=== PATIENT | female | born 1995 | race Caucasian/White ===

== ENCOUNTER 2018-03-03 16:53 | Emergency (ER) | payer BC, OTHER ==
[~2018-03-03] VITALS: Ht 167.6 cm; Wt 59.0 kg
[~2018-03-03 16:53] MED LIST: ANTIDEPRESSANT PO; FAMO40 PO; METPHE10 PO; ONDA4ODT MM; PRED20 PO; [UNRECOGNIZED DRUG - OTHER]
[2018-03-03] MEDS ORDERED: Bactrim Ds Tab1 EACH PO (17:47)
[2018-03-03] MEDS ORDERED: CEPH500 PO (17:47)
== END 2018-03-03 17:52 | disposition home or self-care (01) ==
LOC: ER 16:53
DX: H60.01 Abscess of right external ear (principal); L02.01 Cutaneous abscess of face; L03.211 Cellulitis of face; H60.11 Cellulitis of right external ear; F90.9 Attention-deficit hyperactivity disorder, unspecified type; F17.210 Nicotine dependence, cigarettes, uncomplicated
CPT/HCPCS: 87070; 87077; 87147; 87186; 87205; 99283

== ENCOUNTER 2019-05-28 23:39 | Emergency (ER) | payer SELFPAY ==
[~2019-05-28] VITALS: Ht 167.6 cm; Wt 59.0 kg
[~2019-05-28 23:39] MED LIST changes: +Bactrim Ds Tab1 EACH PO; +CEPH500 PO
[2019-05-29 01:13] LABS: BASOPHILS ABSOLUTE AUTO 0.04 K/mm3 (0.00-0.23); BASOPHILS PERCENT AUTO 0 % (0-2); EOSINOPHILS ABSOLUTE AUTO 0.13 K/mm3 (0.00-0.68); EOSINOPHILS PERCENT AUTO 1 % (0-6); Hematocrit 32.7 % (33.0-51.0); Hemoglobin 10.8 g/dL (11.5-16.0); IMMATURE GRAN ABSOLUTE AUTO 0.07 K/mm3 (0.00-0.10); IMMATURE GRAN PERCENT AUTO 1 % (0-1); LYMPHOCYTES ABSOLUTE AUTO 3.31 K/mm3 (0.84-5.20); LYMPHOCYTES PERCENT AUTO 26 % (21-46); MONOCYTES ABSOLUTE AUTO 1.07 K/mm3 (0.16-1.47); MONOCYTES PERCENT AUTO 9 % (4-13); Mean Corpuscular HGB 28.2 pg (26.0-34.0); Mean Corpuscular Volume 85 fL (80-100); NEUTROPHILS ABSOLUTE AUTO 8.01 K/mm3 (1.96-9.15); NEUTROPHILS PERCENT AUTO 63 % (41-73); Platelet Count 236 K/mm3 (150-400); RDW Coefficient Variation 13.5 % (11.7-14.2); RDW Standard Deviation 42.2 fL (35.1-46.3); Red Blood Cell Count 3.83 M/mm3 (3.80-5.20); White Blood Cell Count 12.63 K/mm3 (4.00-11.30)
[2019-05-29 01:28] LABS: Alanine Aminotransfer (ALT/SGP 77 U/L (12-78); Albumin, Blood 3.2 g/dL (3.4-5.0); Albumin/Globulin Ratio 0.7 (0.8-1.8); Alk Phos 205 U/L (50-136); Anion Gap 6 mmol/L (6-16); Aspartate Aminotrans (AST/SGOT 20 U/L (12-37); Bilirubin, Total 0.6 mg/dL (0.1-1.0); Blood Urea Nitrogen 13 mg/dL (8-24); Bun/Creatinine Ratio 24.9 (12.0-20.0); CO2, Blood 27 mmol/L (21-32); Calcium, Blood 8.5 mg/dL (8.5-10.1); Chloride, Blood 103 mmol/L (98-108); Creatinine, Blood 0.52 mg/dL (0.40-1.00); Globulin, Blood 4.5 g/dL (2.2-4.0); Glomerular Filtration Rate >60 (60-); Glucose, Blood 89 mg/dL (70-99); Potassium, Blood 3.2 mmol/L (3.5-5.5); Sodium, Blood 136 mmol/L (136-145); Total Protein, Blood 7.7 g/dL (6.4-8.2); Troponin I <0.015 ng/mL (0.000-0.040)
[2019-05-29] MEDS ORDERED: Augmentin 500-1 EACH PO (01:49)
[2019-05-29 02:07] LABS: Source, Urine Clean Catch
[2019-05-29 02:10] LABS: Appearance, Urine Clear (Clear); Blood, Urine 1+ (Neg); Color, Urine Amber (P-Yellow); Glucose Qualitative, Urine Neg (Neg); Ketones, Urine 1+ (Neg); Leukocyte Esterase, Urine 2+ (Neg); Nitrite, Urine Neg (Neg); Protein, Urine 2+ (Neg); Urobilinogen, Urine 2+ (Normal)
[2019-05-29 02:11] LABS: Bilirubin, Urine 1+ (Neg)
[2019-05-29 02:17] LABS: Bacteria Many /hpf; Mucus Heavy (0-Heavy); Squamous Epithelial Cells Mod /hpf (Few)
[2019-05-29 03:06] LABS: Trichomonas Few /hpf
== END 2019-05-29 02:45 | disposition home or self-care (01) ==
LOC: ER 23:39
PROVIDERS: Emergency Medicine
DX: R50.9 Fever, unspecified (principal); F11.10 Opioid abuse, uncomplicated; F90.9 Attention-deficit hyperactivity disorder, unspecified type; F17.200 Nicotine dependence, unspecified, uncomplicated
CPT/HCPCS: 36415; 71046; 80053; 81001; 83605; 84484; 85025; 87086; 93005; 93010; 96361; 96365; 99284-25; J0696; J7030

== ENCOUNTER 2020-08-27 17:38 | Emergency (ER) | payer OTHER ==
[~2020-08-27] VITALS: Ht 167.6 cm; Wt 68.0 kg
[~2020-08-27 17:38] MED LIST changes: +Augmentin 500-1 EACH PO
== END 2020-08-27 18:00 | disposition home or self-care (01) ==
LOC: ER 17:38
DX: S91.332A Puncture wound without foreign body, left foot, initial encounter (principal); Z23 Encounter for immunization; F17.200 Nicotine dependence, unspecified, uncomplicated; W45.0XXA Nail entering through skin, initial encounter
CPT/HCPCS: 90471; 90714; 99282-25

== ENCOUNTER 2021-02-28 10:01 | Emergency (ER) | payer OTHER ==
[~2021-02-28] VITALS: Ht 167.6 cm; Wt 61.2 kg
[2021-02-28] MEDS ORDERED: Bactrim Ds Tab1 EACH PO (10:55)
== END 2021-02-28 11:05 | disposition home or self-care (01) ==
LOC: ER 10:01
DX: L02.414 Cutaneous abscess of left upper limb (principal); F17.200 Nicotine dependence, unspecified, uncomplicated

== ENCOUNTER 2021-04-13 18:59 | Emergency (ER) | payer OTHER ==
[~2021-04-13] VITALS: Ht 165.1 cm; Wt 68.0 kg
== END 2021-04-13 19:11 | disposition home or self-care (01) ==
LOC: ER 18:59
DX: Z00.00 Encounter for general adult medical examination without abnormal findings (principal); Z11.4 Encounter for screening for human immunodeficiency virus [HIV]; F17.200 Nicotine dependence, unspecified, uncomplicated; Z79.899 Other long term (current) drug therapy
CPT/HCPCS: 99282